=== PATIENT | female | born 1945 | race African-American/Black ===

== ENCOUNTER 2016-04-13 17:31 | Inpatient (IN) | payer OTHER ==
[~2016-04-13] VITALS: Ht 154.9 cm; Wt 124.7 kg
--- NOTE | ~2016-04-13 | EKG ---
[address] [place] [address] ELECTROCARDIOGRAM REPORT Name: MARANDA BEGUM Room #: 458-P ADM IN M.R.#: [id number] Admission: 04/13/16 Attend Phys: Adina Martinez MD Discharge: Date of : 49 Report #: [id number] THIS REPORT FOR: //name// [facility] ED Test Date: 2016-04-13 Test Time: 17:54:24 Pat Name: MARANDA BEGUM Department: Room: [facility] Gender: F Nutrition Director: Boubacar CHANEY : 1945 Requested By: Sofie Bob Order Number: [id number] MD: Adelfo Morrison Measurements Intervals [place] Rate: 83 P: 14 WV: 151 QRS: -54 QRSD: 147 T: 69 QT: 428 QTc: 503 Interpretive Statements Sinus rhythm Right bundle branch block LVH with IVCD and secondary repol abnrm Compared to ECG 02/07/2016 15:45:33 No significant change Electronically Signed On 04-14-2016 10:56:23 USABILITY ARCHITECT by Adelfo Morrison [email or web address] <ELECTRONICALLY SIGNED> By: Adelfo Morrison MD 04/14/16 1056 53 53 Adelfo Morrsion MD /CHAPARRITA
--- NOTE | ~2016-04-13 | 2DMMODE ---
[facility] [place] [address] 2 D/M-MODE ECHOCARDIOGRAM Name: MARANDA BEGUM Room #: 458-P [facility] IN .R.#: [id number] Admission: 04/13/16 Attend Phys: Adina Martinez MD Discharge: Date of : 49 Date of Service: 04/15/16 0958 Report #: [id number] THIS REPORT FOR: //name// Transthoracic Echocardiography Ordering physician: Cecy Womack Referring physician: Reta Price Kate E. Computer Applications Engineer: IAM Delcid Indications/History: COPD, SOA, DM, CHF, HTN. BP: 125 / HR: 54bpm Height: 60in Weight: 274.4lb 52 Study data: M-mode, complete 2D, complete spectral Doppler, and color Doppler. Location: Bedside. Routine. Image quality was adequate. 2D measurements Normal Normal LVID ED 56.9mm 36-57 IVS ED 9.7mm 6-11 LVID ES 36.7mm 23-40 LVPW ED 9.8mm 6-11 LA volume 37ml/m2 16-28 AoRoot diam 25.2mm 21-37 index ED LVOT diameter 18mm 18-23 Findings: Left ventricle: The cavity size was normal. Wall thickness was normal. Systolic function was normal. The estimated ejection fraction was in the range of 55% to 60%. Wall motion was normal. Right ventricle: The cavity size was dilated. Systolic function was normal. Right atrium: The atrium was dilated. Left atrium: The atrium was dilated. Volume index: 37ml/m2 (S). Aortic valve: Trileaflet; mildly calcified leaflets. Doppler: There was no stenosis. No regurgitation. Peak velocity: 188.5cm/s (S). Peak gradient: 14.2mm Hg (S). [facility] [address] [place] [address] 2 D/M-MODE ECHOCARDIOGRAM Name: MARANDA BEGUM Room #: 458-P [facility] IN [place]#: [id number] Admission: 04/13/16 Attend Phys: Adina Martinez MD Discharge: Date of : 49 Date of Service: 04/15/16 0958 Report #: [id number] Mitral valve: Mildly calcified annulus. Doppler: There was no evidence for stenosis. Mild to moderate regurgitation. Peak E-wave velocity: 112.3cm/s. Peak gradient: 5mm Hg (D). Peak A-wave velocity: 82.9cm/s. Tricuspid valve: Structurally normal valve. Doppler: There was no evidence for stenosis. Mild regurgitation. Regurgitant peak velocity: 285.9cm/s. Peak RV-RA gradient: 33mm Hg (S). Pulmonic valve: Structurally normal valve. Doppler: There was no evidence for stenosis. Mild regurgitation. Pericardium: There was no pericardial effusion. Aorta: Aortic root: The aortic root was normal in size. Pulmonary artery: Systolic pressure was estimated to be 43mm Hg. Diastolic function: Findings consistent with left ventricular diastolic dysfunction. Systemic veins: Inferior vena cava: The vessel was dilated; the respirophasic diameter changes were in the normal range (= 50%). Conclusions 1. Left ventricle: Systolic function was normal. The estimated ejection fraction was in the range of 55% to 60%. Wall motion was normal. 2. Aortic valve: Trileaflet; mildly calcified leaflets. There was no stenosis. No regurgitation. 3. Mitral valve: Mildly calcified annulus. Mild to moderate regurgitation. 4. Pulmonary arteries: Systolic pressure was estimated to be 43mm Hg. 5. Pericardium, extracardiac: There was no pericardial effusion. <ELECTRONICALLY SIGNED> By: Clint Reyes MD, [facility] 04/15/16 1127 [id number] 112 Clint Reyes MD, FAC /pool
[~2016-04-13 17:31] MED LIST: ADVAIR HFA 230M12 GM INH; ALPRAZOLAM 0.0.25 M1 PO; AMBIEN 5 MG TABL5 M1 PO; ATIVAN0.5 MG PO; B12INJ IM; BAYER CHEWABLE81 MG PO; CARVEDILOL12.5 MG PO; CELEXA20 MG PO; CITRATE OF MAG296 ML PO; CLARITIN10 MG PO; COLACE100 MG PO; CONZIP100 MG PO; DUONEB 2.5-0.5 M3 ML INH; ENOXAPARIN40 MG/0.1 SUBQ; FLEXERIL PO; FLOMAX0.4 MG PO; HUMALOG100 UNIT/1 SUBQ; HYDRALAZINE 2525 M1 PO; HYDRALAZINE 2525 MG PO; HYDROCODONE-AP1 EAC6 PO; IPRAT-ALBUT 0.5-3 ML IH; IRON325 PO; ISOSORBIDE DINI20 M2 PO; JUVEN PACKET1 EACH PO; LASIX 20 MG TAB20 MG PO; LEVEMIR SUBQ; LEXAPRO 10 MG T10 M1 PO; LOPERAMIDE 2 MG2 M1 PO; LOSARTAN POTAS100 MG PO; MACROBID 100 M100 M1 PO; MIRALAX17 GM PO; NIACIN500 MG PO; NITROGLYCERIN0.4 MG PO; NORCO 5-325 TA1 EACH PO; NORVASC10 MG PO; NOVOLOG100 UNIT/1; OMEPRAZOLE20 M1 PO; ONDANSETRON HCL4 M2 PO; OXYBUTYNIN 5 MG5 M2 PO; PEPCID20 MG PO; PRAVACHOL40 MG PO; PROCRIT 1010000 U/M1 INJECTION; QVAR8.7 G1 INH; REGLAN 10 MG TA10 MG PO; TYLENOL325 MG PO; VERAPAMIL ER180 M1 PO; ZANAFLEX4 MG PO; [UNRECOGNIZED DRUG - OTHER]
[2016-04-13 17:42] VITALS: BP 170/59
[2016-04-13 18:00] LABS: ABG SAMPLE TYPE ARTERIAL; BE(vivo) -0.4 mmol/L (-2 to +3); HCO3 25.8 mmol/L (22.0-26.0); LACTATE 0.92 mmol/L (0.5-2.0); O2(CT) 16.3 mL/dL (15.0-23.0); O2Hb 94.9 % (92.0-98.0); PCO2 48.6 mmHg (35.0-45.0); PO2 81.5 mmHg (80.0-100.0); pH 7.343 (7.360-7.450); sO2 95.3 % (92.0-98.0); tCO2 27.3 mmol/L (24.0-30.0)
[2016-04-13 18:01] LABS: ABG COMMENT ER MASK; STICK SITE L.RADIAL; VDS 15LPM TO NONREBREATH cc
[2016-04-13 18:33] LABS: URINE BILIRUBIN NEGATIVE (Negative); URINE BLOOD 1+ (Negative); URINE COLOR YELLOW; URINE GLUCOSE-RANDOM* NEGATIVE (Negative); URINE KETONES NEGATIVE (Negative); URINE LEUKOCYTES-REFLEX NEGATIVE (Negative); URINE PROTEIN (DIPSTICK) 2+ (Negative); URINE SPECIFIC GRAVITY 1.015 (1.003-1.035); URINE UROBILINOGEN 0.2 E.U./dl (0.2-1.0)
[2016-04-13 18:43] LABS: SQUAMOUS None Seen /LPF (0-3)
[2016-04-13 18:44] LABS: CASTS None Seen /LPF (None Seen); CRYSTALS None Seen /LPF (None Seen); URINE RBC 3-10 Few /HPF (0-2); URINE WBC-REFLEX 0-5 Rare /HPF (0-5)
[2016-04-13 18:55] LABS: ABSOLUTE NEUTROPHILS 8.2 thou/uL (1.4-8.2); BASOPHILS 0.7 % (0.0-2.0); EOSINOPHILS 2.3 % (0.0-3.0); LYMPHOCYTES 16.8 % (24.0-44.0); MCH 26.9 pg (26.0-34.0); MCHC 31.5 % (28.0-37.0); MCV 85.4 fL (80.0-100.0); MONOCYTES 5.9 % (1.0-8.0); PLATELET COUNT 268 thou/uL (150-400); POLYS 74.3 % (36.0-66.0)
[2016-04-13 18:56] LABS: MANUAL DIFF NO
[2016-04-13 19:03] LABS: ANION GAP 4 mmol/L (7-16); BUN 29 mg/dL (7-18); CALCIUM 9.3 mg/dL (8.5-10.1); CHLORIDE 102 mmol/L (98-107); CO2 29 mmol/L (21-32); CREATININE 1.4 mg/dL (0.6-1.3); GLUCOSE 153 mg/dL (70-99); POTASSIUM 5.7 mmol/L (3.5-5.1); SODIUM 135 mmol/L (136-145)
[2016-04-13 19:07] LABS: APTT 27.8 Seconds (24.5-32.8); PROTIME 10.5 Seconds (9.3-11.4)
[2016-04-13 19:16] LABS: ALBUMIN 3.1 g/dL (3.4-5.0); ALKALINE PHOSPHATASE 100 U/L (46-116); NT-PRO BRAIN NAT PEPTIDE 3116 pg/mL (<300); SGOT 11 U/L (15-37); SGPT 16 U/L (30-65); TOTAL BILIRUBIN 0.3 mg/dL (<0.1-1.0); TOTAL PROTEIN 7.5 g/dL (6.4-8.2); TROPONIN-I < 0.04 ng/mL (<0.04-0.07)
[2016-04-13 19:41] VITALS: BP 169/71
[2016-04-13 20:43] VITALS: BP 111/58
[2016-04-13 23:59] VITALS: BP 145/51
[2016-04-14 04:05] VITALS: BP 136/49
[2016-04-14 07:38] LABS: HEMATOCRIT 33.5 % (37.0-47.0); HEMOGLOBIN 10.7 gm/dL (12.0-15.0); MCH 27.1 pg (26.0-34.0); MCHC 32.1 % (28.0-37.0); MCV 84.3 fL (80.0-100.0); RBC 3.97 mil/uL (4.20-5.00); RDW 15.2 % (10.5-14.5)
[2016-04-14 07:41] VITALS: BP 141/50
[2016-04-14 07:52] LABS: CALCIUM 9.3 mg/dL (8.5-10.1); CREATININE 1.5 mg/dL (0.6-1.3); POTASSIUM 5.3 mmol/L (3.5-5.1)
[2016-04-14 12:17] VITALS: BP 127/35
[2016-04-14 20:00] VITALS: BP 111/43
[2016-04-14 23:34] VITALS: BP 110/43
[2016-04-15 04:00] VITALS: BP 120/42
[2016-04-15 07:26] LABS: HEMATOCRIT 30.6 % (37.0-47.0); HEMOGLOBIN 9.9 gm/dL (12.0-15.0); MCH 27.2 pg (26.0-34.0); MCHC 32.2 % (28.0-37.0); MCV 84.4 fL (80.0-100.0); PLATELET COUNT 216 thou/uL (150-400); RBC 3.62 mil/uL (4.20-5.00); RDW 15.1 % (10.5-14.5); WBC 9.4 thou/uL (4.0-11.0)
[2016-04-15 07:31] LABS: MANUAL DIFF YES
[2016-04-15 07:40] LABS: CALCIUM 8.6 mg/dL (8.5-10.1); CREATININE 1.8 mg/dL (0.6-1.3); POTASSIUM 4.9 mmol/L (3.5-5.1)
[2016-04-15 07:50] VITALS: BP 125/52
[2016-04-15 08:42] LABS: ABSOLUTE NEUTROPHILS 5.7 thou/uL (1.4-8.2); TOTAL CELL COUNT 100
[2016-04-15 08:44] LABS: ANISOCYTOSIS 1+
[2016-04-15 08:45] LABS: HYPOCHROMASIA 1+
[2016-04-15 11:25] VITALS: BP 146/52
[2016-04-15 15:33] VITALS: BP 170/60
[2016-04-15 20:02] VITALS: BP 135/55
[2016-04-15 23:51] VITALS: BP 124/50
[2016-04-16 03:40] VITALS: BP 122/49
[2016-04-16 08:00] VITALS: BP 150/68
[2016-04-16] MEDS ORDERED: LEVAQUIN 500 M500 M2 PO (11:01)
[2016-04-16] MEDS ORDERED: PREDNISONE 20 M20 MG PO (11:01)
[2016-04-16 12:00] VITALS: BP 128/48
[2016-04-16 15:48] VITALS: BP 115/37
[2016-04-16 19:57] VITALS: BP 132/46
[2016-04-17 04:26] VITALS: BP 123/71
[2016-04-17 08:00] VITALS: BP 111/85
[2016-04-17 11:53] VITALS: BP 146/92
== END 2016-04-17 16:11 | disposition short-term general hospital (02) | DRG 177 ==
LOC: ER 17:31 → 4W 18:50 → EROBS 18:50 → 4W 19:47
PROVIDERS: Emergency Medicine; Family Medicine; Nurse Practitioner Acute Care; Physician Assistant
PROC: 5A09357 Assistance with Respiratory Ventilation, Less than 24 Consecutive Hours, Continuous Positive Airway Pressure (ICD-10-PCS; principal; 2016-04-13)
DX: J69.0 Pneumonitis due to inhalation of food and vomit (principal); J96.21 Acute and chronic respiratory failure with hypoxia; I50.33 Acute on chronic diastolic (congestive) heart failure; I13.0 Hypertensive heart and chronic kidney disease with heart failure and stage 1 through stage 4 chronic kidney disease, or unspecified chronic kidney disease; Z68.43 Body mass index [BMI] 50.0-59.9, adult; F32.9 Major depressive disorder, single episode, unspecified; J44.9 Chronic obstructive pulmonary disease, unspecified; E66.9 Obesity, unspecified; G47.33 Obstructive sleep apnea (adult) (pediatric); E11.22 Type 2 diabetes mellitus with diabetic chronic kidney disease; N18.3 Chronic kidney disease, stage 3 (moderate); E11.42 Type 2 diabetes mellitus with diabetic polyneuropathy; K21.9 Gastro-esophageal reflux disease without esophagitis; Z88.0 Allergy status to penicillin; Z88.1 Allergy status to other antibiotic agents; Z88.2 Allergy status to sulfonamides; Z85.41 Personal history of malignant neoplasm of cervix uteri; Z90.49 Acquired absence of other specified parts of digestive tract; Z82.49 Family history of ischemic heart disease and other diseases of the circulatory system; Z83.3 Family history of diabetes mellitus; Z80.9 Family history of malignant neoplasm, unspecified
CPT/HCPCS: 10045